=== PATIENT | female | born 1975 | race Caucasian/White ===

== ENCOUNTER 2022-07-11 05:25 | Emergency (ER) | payer MEDICARE, BC, SELFPAY ==
[2022-07-11] VITALS (8 sets, daily range): BP systolic 159–186; BP diastolic 75–102; PULSE 60–102; RESP 20; TEMP 36.7; O2SAT 97–100; BMI 49.1
--- NOTE | 2022-07-11 05:28 | CT_ITS ---
FINAL REPORT CLINICAL HISTORY: RLQ pain and flank pain FINDINGS: CT OF THE ABDOMEN AND PELVIS WITH CONTRAST Axial CT images of the abdomen and pelvis were obtained after the administration of IV contrast. Coronal reformatted images were also obtained and reviewed.This study was performed with techniques to keep radiation doses as low as reasonably achievable (ALARA). Individualized dose reduction techniques using automated exposure control or adjustment of mA and/or kV according to the patient's size were employed. Abdomen: The lung bases are clear. The heart is normal in size. The liver has an unremarkable appearance, without evidence of mass or biliary ductal dilatation. The gallbladder is present. The spleen is unremarkable. No adrenal mass is present. The pancreas has an unremarkable appearance. The kidneys are normal, without evidence of mass or hydronephrosis. The aorta is normal in caliber. There is no free fluid or adenopathy. No mass or abnormal fluid collection is seen. Pelvis: The appendix is visualized and is mildly enlarged measuring 7 mm in diameter without adjacent inflammatory change. No convincing evidence of appendicitis is identified. There is a 3.6 cm presumed left ovarian cyst. The urinary bladder is unremarkable. No inflammatory process is seen. There is no evidence of mass or adenopathy. There is no evidence of bowel obstruction. There are mild vascular calcifications. IMPRESSION: No evidence of acute intra-abdominal process. Mildly enlarged appendix without convincing evidence of appendicitis. Presumed left ovarian cyst. Reviewed, Interpreted and Dictated by Cristobal Albert III, MD Transcribed by Liyah Cook Authenticated and [facility]
--- NOTE | 2022-07-11 05:32 | HMH.EDABDPAI ---
Discharge Plan Disposition Patient Disposition: Home, Self-Care Condition: Good Prescriptions Prescriptions: New cefdinir 300 mg capsule 300 mg PO BID 10 Days Qty: 20 0RF Referrals Follow up/Referrals: Provider,Katie, [Primary Care Provider] - See instructions Activity Restrictions/Add. Instructions Additional Instructions/Restrictions: Follow-up with your primary care provider within 24 hours to establish care and ensure no worsening of symptoms. If you have inability to tolerate food or drink by mouth, fevers, worsening pain, or any other concerning symptoms, return to the emergency department promptly for further evaluation. Take antibiotics for 10 days, twice daily for full course to treat urinary tract infection. Clinical Impressions Clinical Impression: UTI (urinary tract infection) Instructions Patient Instructions: DI for Acute Abdominal Pain Discharge ED Provider: Jaylan Sandoval Abdominal Pain HPI <Ar Stuart MD - Last Filed: 07/11/22 08:00> General Chief Complaint: Abdominal Pain Stated Complaint: Right Side ABD Pain Time Seen by Provider: 07/11/22 05:32 History of Present Illness HPI narrative: 46-year-old female with history of tubal ligation and renal lithiasis presents with 2 days of right-sided abdominal pain flank pain that woke her up this morning and was significantly worse than it has been. She moved from [place] within the last few months and has been intermittently managing hypertension without a primary care physician with an unknown medication. She is hypertensive on arrival but also complaining of 8 out of 10 pain. States it is over the right lower abdomen and feels as though it is into her groin and aching in the thigh. Denies fevers chills or body aches nauseated but no vomiting. States that she has had a history of kidney stones but remembers nothing about the Related Data Previous Rx's Medication Instructions Recorded cefdinir 300 mg capsule 300 mg PO BID 10 days #20 caps 07/11/22 Allergies Allergy/AdvReac Type Severity Reaction Status Date / Time Codeine Allergy Mild NA-NAUSEA/V Uncoded 09/08/17 15:24 OMITING Hydrocodone Allergy Mild NA-NAUSEA/V Uncoded 09/08/17 15:24 OMITING Penicillin Allergy Mild NA-NAUSEA/V Uncoded 09/08/17 15:24 OMITING PFSH <Ar Stuart MD - Last Filed: 07/11/22 08:00> PFSH Social History (Updated 07/11/22 @ 08:00 by Ar Stuart MD) Smoking Status: Current every day smoker alcohol intake: never current occupational status: other Travel in the last 8 weeks: None <Ar Stuart MD - Last Filed: 07/11/22 08:00> ROS Obtained: Yes Systems reviewed as appropriate & no additional complaints except as documented Physical Exam <Ar Stuart MD - Last Filed: 07/11/22 08:00> General General appearance: alert and in no apparent distress Head Head exam: atraumatic Eye Eye exam: Present PERRL ENT ENT exam: Present mucous membranes moist Neck Neck exam: Present trachea midline Chest Chest inspection: Present symmetric chest wall rise Respiratory Respiratory exam: Absent respiratory distress Cardiovascular Cardiovascular exam: Present regular rate Abdominal Exam Abdominal exam: Present soft and tenderness; Absent distention Abdominal tenderness: Present RLQ Neurological Exam Neurological exam: Present alert and oriented X3 Skin Skin exam: Present warm, dry and intact Medical Decision Making <Ar Stuart MD - Last Filed: 07/11/22 08:00> Medical Records Medical records reviewed: Yes I reviewed the patient's medical records. Cedrick Inquiry Pt receiving controlled substance: No Vital Signs: 07/11/22 05:25 07/11/22 05:30 07/11/22 06:11 Temperature 98.1 F Temperature Source Oral Pulse Rate 83 69 Pulse Rate [Right] 102 H Respiratory Rate 20 Blood Pressure 183/102 H 186/81 H Blood Pressure [Right Arm] 183/102 H Blood Pressure Mean Blood Pressure Mean [Right
[2022-07-11 05:41] LABS: Basophils # 0.1 K/mm3 (0-0.2); Basophils % 0.7 % (0.1-2.0); Eosinophils # 0.2 K/mm3 (0.0-0.4); Eosinophils % 2.4 % (0.1-12.0); Hematocrit 37.2 % (37.0-47.0); Hemoglobin 11.6 g/dL (12.2-16.2); Lymphocytes # 2.4 K/mm3 (0.7-4.5); Lymphocytes % 26.4 % (10-50); Mean Corpuscular HGB Conc 31.3 g/dL (31.8-35.4); Mean Corpuscular Hemoglobin 24.1 pg (27.0-31.2); Mean Corpuscular Volume 77.1 fl (81-99); Mean Platelet Volume 8.9 fl (7.4-10.4); Monocytes # 0.6 K/mm3 (0.1-1.0); Monocytes % 6.4 % (1.7-9.3); Neutrophils # 5.8 K/mm3 (1.8-7.8); Neutrophils % 64.2 % (37.0-80.0); Platelet Count 265 K/mm3 (142-424); Red Blood Count 4.82 M/mm3 (4.20-5.40); Red Cell Distribution Width 16.7 % (11.5-17.5); White Blood Count 9.1 K/mm3 (4.8-10.8)
[2022-07-11 05:44] LABS: Chloride 103 mmol/L (98-107); Potassium 3.6 mmoL/L (3.5-5.1); Sodium 139 mmol/L (136-145)
[2022-07-11 05:45] LABS: Microscopic, Urine URINE MICROSCOPIC (MICROSCOPIC)
[2022-07-11 05:46] LABS: Alanine Aminotransferase 14 U/L (12-78); Alkaline Phosphatase 90 U/L (38-126); Aspartate Amino Transferase 17 U/L (14-36); Blood Urea Nitrogen 16 mg/dl (7-17); Estimated Glomerular Filt Rate 108 ml/min (>60); GFR (African American) 131 ML/MIN (>60)
[2022-07-11 05:47] LABS: Bilirubin,Urine Negative (Negative); Blood, Urine 3+ (Negative); Color,Urine YELLOW (Yellow); Glucose,Urine (UA) Negative (Negative); Ketones,Urine Negative (Negative); Leukocyte Esterase,Urine 2+ (Negative); Nitrate,Urine Negative (Negative); Protein,Urine TRACE (Negative); Specific Gravity, Urine 1.025 (1.005-1.030); Urobilinogen,Urine 0.2 EU/dl (0.2)
[2022-07-11 05:47] LABS: Urine Pregnancy, HCG Qual. Negative (Negative)
[2022-07-11 05:47] LABS: Albumin/Globulin Ratio 1.3 (1.1-1.8); Anion Gap 13.6 mEq/L (5-15); Calcium 8.5 mg/dl (8.4-10.2); Carbon Dioxide 26 mmol/L (22.0-30.0); Globulin 3.1 g/dL (1.3-3.2); Glucose 105 mg/dl (74-100); Lipase 50 U/L (23-300); Total Protein,Serum 7.1 g/dl (6.3-8.2)
[2022-07-11 05:51] LABS: Bilirubin,Total < 0.1 mg/dl (0.2-1.3)
[2022-07-11 05:53] LABS: Appearance,Urine Slightly Cloudy (Clear)
[2022-07-11 06:00] LABS: Bacteria,Urine 1+ /lpf
--- NOTE | 2022-07-11 07:40 | PC.NURSE ---
contacted rad to check on status of ct results, rad staff states it has not been read yet they are going to call and check on it.
--- NOTE | 2022-07-11 08:49 | PC.NURSE ---
at the bedside
== END 2022-07-11 09:31 | disposition home or self-care (01) ==
PROVIDERS: Student in an Organized Health Care Education/Training Program; Emergency Provider Emergency Medicine
DX: N39.0 Urinary tract infection, site not specified (principal); Z88.0 Allergy status to penicillin; Z88.6 Allergy status to analgesic agent
CPT/HCPCS: 74177; 80053; 81001; 81025; 83690; 85025; 87086; 96365; 96375; 99284; J2405; Q9967

== ENCOUNTER 2025-01-31 02:48 | Emergency (ER) | payer MEDICARE, SELFPAY ==
[2025-01-31 02:39] VITALS: BP 216/125; PULSE 88; RESP 22; TEMP 36.6; O2SAT 99; BMI 48.8
--- NOTE | 2025-01-31 02:43 | HMH.EDGENADL ---
Discharge Plan Disposition Patient Disposition: Home, Self-Care Prescriptions Prescriptions: New valacyclovir 500 mg tablet 1,000 mg PO TID Qty: 30 0RF No Action cefdinir 300 mg capsule 300 mg PO BID 10 Days Qty: 20 0RF Activity Restrictions/Add. Instructions Additional Instructions/Restrictions: Please take antiviral medications as prescribed. Please take Tylenol and ibuprofen as needed for pain. Please follow-up with your primary care provider. Please return to the emergency department if you develop any new or worsening symptoms or become concerned for your health. Clinical Impressions Clinical Impression: Shingles Instructions Patient Instructions: DI for Shingles, DI for Skin Abscess Print Language Print Language: Tamazight Discharge ED Provider: Cedrick Geronimo General Adult HPI General Chief complaint: Skin/Abscess/Foreign Body Stated complaint: PAIN Time Seen by Provider: 01/31/25 02:49 History of Present Illness HPI narrative: 41-year-old female with reported history of hypertension presents for right-sided chest pain has been ongoing for last few days. A couple of hours ago she started noticing a rash and more severe pain in the skin. Related Data Previous Rx's ?Medication ?Instructions ?Recorded cefdinir 300 mg capsule 300 mg PO BID 10 days #20 caps 07/11/22 valacyclovir 500 mg tablet 1,000 mg (2 x 500 mg) PO TID #30 01/31/25 tabs Allergies Allergy/AdvReac Type Severity Reaction Status Date / Time Codeine Allergy Mild NA-NAUSEA/V Uncoded 09/08/17 15:24 OMITING Hydrocodone Allergy Mild NA-NAUSEA/V Uncoded 09/08/17 15:24 OMITING Penicillin Allergy Mild NA-NAUSEA/V Uncoded 09/08/17 15:24 OMITING PFSH PFSH Disclaimer: The information contained in this section may have been updated after the patient was seen, as this information can be updated by other users. Social History (Updated 07/11/22 @ 08:00 by Ar Stuart MD) Smoking Status: Current every day smoker alcohol intake: never current occupational status: other Travel in the last 8 weeks?: None ROS Obtained: Yes All systems reviewed & no additional complaints except as documented Physical Exam General General appearance: alert and in no apparent distress Head Head exam: atraumatic and normocephalic Eye Eye exam: Present normal appearance, PERRL and EOMI ENT ENT exam: Present normal oropharynx and normal external ear exam Neck Neck exam: Present normal inspection and full ROM Chest Chest inspection: Present symmetric chest wall rise; Absent normal inspection (Shingles rash noted under the right breast in the distribution of patient's pain) or tenderness Respiratory Respiratory exam: Present normal lung sounds bilaterally; Absent respiratory distress Cardiovascular Cardiovascular exam: Present regular rate and normal rhythm Abdominal Exam Abdominal exam: Present soft; Absent distention, tenderness or guarding Extremities Exam Extremities exam: Present normal inspection; Absent edema or joint swelling Back Exam Back exam: Present normal inspection; Absent tenderness Neurological Exam Neurological exam: Present alert and oriented X3; Absent motor sensory deficit Psychiatric Psychiatric exam: Present normal affect and normal mood Skin Skin exam: Present warm, dry and normal color Lymphatic Lymphatic Findings: no adenopathy Medical Decision Making Medical Records Medical records reviewed: Yes I reviewed the patient's medical records. Screening: Per USPSTF and CDC recommendations, given the prevalence of disease in our region, it is our hospital?s policy to screen for HIV and viral Hepatitis for all patients aged 18 and over and those with ongoing risk factors. Cedrick Inquiry Pt receiving controlled substance: No Cedrick was queried for this patient: No Vital Signs: 01/31/25 02:39 Temperature 98 F Temperature Source Oral Pulse Rate [Left] 88 Respiratory Rate 22 Blood Pressure [Right Arm] 216/125 H Blood Pressure Mean [Right Arm] 155 Blood Pressure Source [Right Arm] Automatic Cuff Blood Pressure Position [Right Arm] Sitting 02 Sat by Pulse Oximetry 99 Oxygen Delivery Method Room Air Lab Data Lab results reviewed: Yes I reviewed the patient's lab results. Orders (Tests/Meds): ED MEDICATIONS Discontinued Medications Generic Name Dose Route Start Last Admin Trade Name Bishnuq PRN Reason Stop Dose Admin Acyclovir 800 mg 01/31/25 02:41 01/31/25 02:47 Acyclovir 400mg Tab PO 01/31/25 02:42 800 mg ONCE ONE Administration Medical Decision Narrative: 49-year-old female with history of hypertension presents for right chest pain wrapping around to the back with a rash. History was obtained via interactive discussion with patient. On arrival, patient is [afebrile, hemodynamically stable, satting appropriately, alert, oriented x4, GCS 15], moving all extremities spontaneously. Full physical exam performed and significant for rash consistent with shingles under the right breast wrapping around. Differential includes but is not limited to shingles, cellulitis, abscess. Patient was given acyclovir and discharged with prescription for valacyclovir for treatment of shingles. Patient discharged in stable condition with return precautions. Procedures Risk/Benefits of Procedure(s) Were Explained: Yes Critical Care Critical Care Time Critical Care Time: No
[2025-01-31] MEDS: ACYCLOVIR 400MG TAB 800 MG PO (02:47)
[2025-01-31 02:53] VITALS: BP 216/105; PULSE 96; RESP 18; TEMP 36.8; O2SAT 98
[2025-01-31 03:00] VITALS: BP 216/105; PULSE 85; RESP 20; TEMP 36.8; O2SAT 98
== END 2025-01-31 03:01 | disposition home or self-care (01) ==
LOC: ER 02:51
PROVIDERS: Emergency Provider Emergency Medicine
DX: B02.9 Zoster without complications (principal)
CPT/HCPCS: 99283